=== PATIENT | male | born 1965 | race Two or more races ===

== ENCOUNTER 2020-02-15 21:26 | Emergency (ER) | payer BC, OTHER, SELFPAY ==
[~2020-02-15] VITALS: Ht 167.6 cm; Wt 82.8 kg
[2020-02-15 21:28] VITALS: BP 163/120
[2020-02-15] MEDS ORDERED: LIDOCAINE-MPF 1%, 5ML ONE (21:52)
[2020-02-15] MEDS ORDERED: LIDOCAINE 2%, 20ML INFIL ONE (22:00)
[2020-02-15] MEDS ORDERED: DIPH,PERTUSS(ACELL),TET VAC/PF 0.5 ML IM-VACC ONE ×2 (22:00→22:41)
--- NOTE | 2020-02-15 22:29 | NUR ---
THIS IS A 54Y M THAT COMES IN TONIGHT AFTER DRINKING AT HOME. PT FELL AND HIT HEAD ON SOME FURNITURE, DENIES LOC, NO BLOOD THINNERS. AT BEDSIDE
--- NOTE | 2020-02-15 22:44 | NUR ---
PA AT BEDSIDE FOR SUTURES
[2020-02-15] MEDS ORDERED: NEOSPORIN OINT. PKT 1 PACKET ONE (23:04)
== END 2020-02-15 23:29 | disposition home or self-care (01) ==
LOC: ED 23:00
DX: S06.0X0A Concussion without loss of consciousness, initial encounter (principal); S01.81XA Laceration without foreign body of other part of head, initial encounter; S01.01XA Laceration without foreign body of scalp, initial encounter; M54.2 Cervicalgia; F10.129 Alcohol abuse with intoxication, unspecified; W18.30XA Fall on same level, unspecified, initial encounter; Y93.89 Activity, other specified; Y92.009 Unspecified place in unspecified non-institutional (private) residence as the place of occurrence of the external cause; Y99.8 Other external cause status; Y90.9 Presence of alcohol in blood, level not specified
CPT/HCPCS: 12013; 70450; 72125; 90471; 90715; 99285

== ENCOUNTER 2020-02-23 12:11 | Emergency (ER) | payer BC ==
[~2020-02-23] VITALS: Ht 167.6 cm; Wt 85.6 kg
[2020-02-23 12:13] VITALS: BP 163/101
--- NOTE | 2020-02-23 13:25 | NUR ---
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
== END 2020-02-23 14:25 | disposition home or self-care (01) ==
LOC: ED 14:22
DX: S01.81XD Laceration without foreign body of other part of head, subsequent encounter (principal); X58.XXXD Exposure to other specified factors, subsequent encounter; Z87.891 Personal history of nicotine dependence
CPT/HCPCS: 99281